=== PATIENT | female | born 1990 | race African-American/Black ===

== ENCOUNTER 2018-04-26 05:24 | Emergency (ER) | payer OTHER ==
[2018-04-26] MEDS ORDERED: KETOROLAC TROMETHAMINE 60 MG/2 ML SDV IM ONE (07:27)
[2018-04-26] MEDS ORDERED: DIPHENHYDRAMINE HCL 25 MG CAPSULE PO ONE (07:27)
[2018-04-26] MEDS ORDERED: PROMETHAZINE HCL 25 MG TABLET PO ONE (07:27)
--- NOTE | 2018-04-26 07:30 | ER Document Report ---
ED Medical Screen (RME) - General Chief Complaint: Headache Stated Complaint: HEADACHE Time Seen by Provider: 04/26/18 07:23 Mode of Arrival: Ambulatory Information source: Patient Notes: Patient presents to the emergency department complaining of a headache for the past 3-4 days. Reports she has a history of headaches this is typical for her but more severe. Reports pressure on the top of her head. She reports nausea denies vomiting diarrhea. Reports lights sound and smell irritates her headache. Patient reports she just moved here and is [facility] this . Reports history of higher blood pressure while she was in the . Does not take any medications for high blood pressure. - Related Data Allergies/Adverse Reactions: doxycycline Allergy (Verified 04/26/18 05:32) Past Medical History - Social History Chew tobacco use (# tins/day): No Frequency of alcohol use: None Drug Abuse: None Renal/ Medical History: Denies: Hx Peritoneal Dialysis Physical Exam - Vital signs Vitals: Temp Pulse Resp BP Pulse Ox 98.6 F 86 16 144/86 H 97 04/26/18 05:34 04/26/18 05:34 04/26/18 05:34 04/26/18 05:34 04/26/18 05:34 Course - Vital Signs Vital signs: Temp Pulse Resp BP Pulse Ox 98.6 F 86 16 144/86 H 97 04/26/18 05:34 04/26/18 05:34 04/26/18 05:34 04/26/18 05:34 04/26/18 05:34
[2018-04-26 10:00] VITALS: BP 139/68
--- NOTE | 2018-04-26 10:18 | ER Document Report ---
ED General - General Chief Complaint: Headache Stated Complaint: HEADACHE Time Seen by Provider: 04/26/18 07:23 Mode of Arrival: Ambulatory - [facility] Patient complains to provider of: Headache Notes: Patient was evaluated by or any provider please see note attached Patient presents to the emergency department complaining of a headache for the past 3-4 days. Reports she has a history of headaches this is typical for her but more severe. Reports pressure on the top of her head. She reports nausea denies vomiting diarrhea. Reports lights sound and smell irritates her headache. Patient reports she just moved here and is [facility] this . Reports history of higher blood pressure while she was in the . Does not take any medications for high blood pressure. Upon my evaluation patient resting comfortably states improvement of headache with medications given here in ER. Patient states some tension in the back of her neck most pain being the top denies any trauma. Denies any nausea vomiting patient looks nontoxic upon my evaluation. - Related Data Allergies/Adverse Reactions: doxycycline Allergy (Verified 04/26/18 05:32) Past Medical History - General Information source: Patient - Social History Smoking Status: Unknown if Ever Smoked Chew tobacco use (# tins/day): No Frequency of alcohol use: None Drug Abuse: None Family History: Reviewed & Not Pertinent Patient has suicidal ideation: No Patient has homicidal ideation: No Renal/ Medical History: Denies: Hx Peritoneal Dialysis Review of Systems - Review of Systems Constitutional: No symptoms reported EENT: No symptoms reported Cardiovascular: No symptoms reported Respiratory: No symptoms reported Gastrointestinal: No symptoms reported Genitourinary: No symptoms reported Female Genitourinary: No symptoms reported Musculoskeletal: No symptoms reported Skin: No symptoms reported Hematologic/Lymphatic: No symptoms reported Neurological/Psychological: Headaches -: Yes All other systems reviewed and negative Physical Exam - Vital signs Vitals: Temp Pulse Resp BP Pulse Ox 98.6 F 86 16 144/86 H 97 04/26/18 05:34 04/26/18 05:34 04/26/18 05:34 04/26/18 05:34 04/26/18 05:34 Interpretation: Normal - General General appearance: Appears well, Alert - HEENT Head: Normocephalic, Atraumatic Eyes: Normal Pupils: PERRL - Respiratory Respiratory status: No respiratory distress Chest status: Nontender Breath sounds: Normal Chest palpation: Normal - Cardiovascular Rhythm: Regular Heart sounds: Normal auscultation Murmur: No - Abdominal Inspection: Normal Distension: No distension Bowel sounds: Normal Tenderness: Nontender Organomegaly: No organomegaly - Back Back: Normal, Nontender - Extremities General upper extremity: Normal inspection, Nontender, Normal color, Normal ROM , Normal temperature General lower extremity: Normal inspection, Nontender, Normal color, Normal ROM , Normal temperature, Normal weight bearing. No: Tasha's sign - Neurological Neuro grossly intact: Yes Cognition: Normal Orientation: AAOx4 Minerva Coma Scale Eye Opening: Spontaneous Minerva Coma Scale Verbal: Oriented Minerva Coma Scale Motor: Obeys Commands Blaze Coma Scale Total: 15 Speech: Normal Motor strength normal: LUE, RUE, LLE, RLE Sensory: Normal - Psychological Associated symptoms: Normal affect, Normal mood - Skin Skin Temperature: Warm Skin Moisture: Dry Skin Color: Normal Course - Re-evaluation Re-evalutation: 04/26/18 10:19 The patient presents with headache without signs of [employer] bleed, stroke, infection , or other serious etiology. The patient is neurologically intact. Given the extremely low risk of these diagnoses further testing and evaluation for these possibilities does not appear to be indicated at this time. The patient has been instructed to return if the symptoms worsen or change in any way.. - Vital Signs Vital signs: Temp Pulse Resp BP Pulse Ox 98.4 F 55 L 14 139/68 H 99 04/26/18 09:59 04/26/18 09:59 04/26/18 09:59 04/26/18 09:59 04/26/18 09:59 Discharge - Discharge Clinical Impression: Headache Qualifiers: Headache type: unspecified Headache chronicity pattern: unspecified pattern Intractability: not intractable Qualified Code(s): R51 - Headache Condition: Good Disposition: HOME, SELF-CARE Instructions: Use of Diphenhydramine, Headache ([facility]), Tension Headache ([facility]) Additional Instructions: Your given ketorolac was an anti-inflammatory promethazine which is a nausea medication and Benadryl today for your headache. Most of this, she will help out with migraines. Her examination is more consistent with a tension headache. Would recommend using the Motrin as prescribed along with Tylenol 650 mg to 1000 mg may also take Phenergan to aid in your headache please return to ER symptoms worsen. Prescriptions: Ibuprofen [Motrin 600 mg Tablet] 600 mg PO Q8HP PRN #21 tablet PRN Reason: Promethazine HCl [Phenergan 25 mg Tablet] 25 mg PO Q6 #30 tablet Forms: Return to Work
== END 2018-04-26 10:15 | disposition home or self-care (01) ==
LOC: ER 05:24
DX: R51 Headache (principal); R11.0 Nausea
CPT/HCPCS: 99284; 96372; J1885